=== PATIENT | male | born 1955 | race Caucasian/White ===

== ENCOUNTER 2017-10-11 02:07 | Emergency (ER) | payer MEDICAID ==
[~2017-10-11] VITALS: Ht 162.6 cm; Wt 77.1 kg
[2017-10-11 02:17] VITALS: BP 156/99
--- NOTE | 2017-10-11 02:50 | NUR ---
XRAY AT BEDSIDE.
== END 2017-10-11 03:32 | disposition home or self-care (01) ==
LOC: ER 02:12
DX: S52.502A Unspecified fracture of the lower end of left radius, initial encounter for closed fracture (principal); W18.39XA Other fall on same level, initial encounter; Y93.89 Activity, other specified; Y92.89 Other specified places as the place of occurrence of the external cause; Y99.8 Other external cause status
CPT/HCPCS: 29125; 73090; 73110; 99284; A4606; L3763; Z7610